=== PATIENT | male | born 1965 | race Caucasian/White ===

== ENCOUNTER 2018-07-22 13:30 | Emergency (ER) | payer OTHER, SELFPAY ==
--- NOTE | 2018-07-22 15:43 | ER ---
Nurse's Notes [facility] Name: Mario Rosales Age: 52 yrs Sex: Male : 1965 Arrival Date: 07/22/2018 Time: 13:32 Bed Waiting Private MD: Parrish Malagon H Diagnosis: Presentation: 07/22 13:34 Presenting complaint: Patient states: Pt had a 16 inch diameter steel jane fall on his sv right forearm. Pt stated that it poked through his arm and was "squirting blood". No blood at this time. Transition of care: patient was not received from another setting of care. Onset of symptoms was July 22, 2018. Care prior to arrival: None. 13:34 Method Of Arrival: Ambulatory sv 13:34 Acuity: KOMAL 3 sv Historical: - Allergies: 13:36 No Known Allergies; sv - Home Meds: 13:36 Lyrica Oral [Active]; Metadate CD oral oral [Active]; sv - PMHx: 13:36 neck nerve pain; ADD/ADHD; sv - PSHx: 13:36 Rt rotator cuff; left knee; sv - Immunization history:: Adult Immunizations up to date. - Social history:: Smoking status: Patient uses tobacco products, smokes one-half pack cigarettes per day. - Ebola Screening: : No symptoms or risks identified at this time. Assessment: 14:04 Reassessment: Pt moved from lobby to exam room for xray, pt refused xray. Placed back hb in waiting room. Vital Signs: 13:39 BP 130 / 79; Pulse 92; Resp 18; Temp 98.7; Pulse Ox 96% ; Weight 76.2 kg; Height 5 ft. sv 4 in. (162.56 cm); Pain 0/10; 13:39 Body Mass Index 28.84 (76.20 kg, 162.56 cm) sv ED Course: 13:32 Patient arrived in ED. sb2 13:32 Parrish Malagon DO is Private Physician. sb2 13:35 Triage completed. sv 13:37 Arm band placed on right wrist. sv 13:41 Patient placed in waiting room, Patient notified of wait time. X-ray ordered. sv Administered Medications: No medications were administered Outcome: 15:43 Patient left the ED. sv Signatures: Joya Melissa RN RN sv Eliane Zaragoza, HARMEET RN Sheyla Hickman sb2 Corrections: (The following items were deleted from the chart) 13:40 13:39 Pulse 92bpm; Resp 18bpm; Pulse Ox 96%; Temp 98.7F; 76.2 kg; Height 5 ft. 4 in.; sv BMI: 28.8; Pain 0/10; sv
== END 2018-07-22 15:43 | disposition left against medical advice (07) ==
LOC: ER 13:30
DX: Z53.21 Procedure and treatment not carried out due to patient leaving prior to being seen by health care provider (principal)
CPT/HCPCS: 99281

== ENCOUNTER 2018-11-15 14:26 | Emergency (ER) | payer SELFPAY ==
[2018-11-15] MEDS ORDERED: ONDANSETRON 4 MG (ODT) TAB ONE (15:52)
[2018-11-15] MEDS ORDERED: MEPERIDINE HCL 50 MG/ML AMP ONE (15:52)
--- NOTE | 2018-11-15 16:30 | ER ---
Nurse's Notes [facility] Name: Mario Rosales Age: 53 yrs Sex: Male : 1965 Arrival Date: 11/15/2018 Time: 14:30 Bed 9 Private MD: Parrish Malagon H Diagnosis: Muscle spasm Presentation: 11/15 14:32 Presenting complaint: Patient states: L posterior shoulder pain after unloading wives ph car on Tuesday, had massage yesterday, pain worse today, reports that pain radiates to L arm. Transition of care: patient was not received from another setting of care. Onset of symptoms was November 15, 2018. Risk Assessment: Do you want to hurt yourself or someone else? Patient reports no desire to harm self or others. Initial Sepsis Screen: Does the patient meet any 2 criteria? No. Patient's initial sepsis screen is negative. Does the patient have a suspected source of infection? No. Patient's initial sepsis screen is negative. Care prior to arrival: Medication(s) given: Harriett Aviles. 14:32 Method Of Arrival: Ambulatory ph 14:32 Acuity: KOMAL 4 ph Historical: - Allergies: 14:36 No Known Allergies; ph - Home Meds: 14:36 Lyrica Oral [Active]; Wellbutrin Oral [Active]; ph - PMHx: 14:36 ADD/ADHD; neck nerve pain; ph - PSHx: 14:36 Rt rotator cuff; left knee; ph - Immunization history:: Adult Immunizations unknown. - Social history:: Smoking status: Patient uses tobacco products, smokes one-half pack cigarettes per day. - Ebola Screening: : No symptoms or risks identified at this time. Screenin:14 Abuse screen: Denies threats or abuse. Denies injuries from another. Nutritional ph screening: No deficits noted. Tuberculosis screening: No symptoms or risk factors identified. Fall Risk None identified. Assessment: 15:13 General: Appears in no apparent distress. uncomfortable, well groomed, Behavior is ph calm, cooperative, appropriate for age. Pain: Complains of pain in left scapular area. Neuro: Level of Consciousness is awake, alert, obeys commands, Oriented to person, place, time, situation. Cardiovascular: Capillary refill < 3 seconds in bilateral fingers Patient's skin is warm and dry. Respiratory: Airway is patent Respiratory effort is even, unlabored, Respiratory pattern is regular, symmetrical. Derm: Skin is intact, is healthy with good turgor, Skin is pink, warm \T\ dry. Musculoskeletal: Circulation, motion, and sensation intact. Range of motion: limited in left shoulder. Vital Signs: 14:35 BP 163 / 90; Pulse 93; Resp 018; Temp 97.9; Pulse Ox 97% on R/A; Weight 74.84 kg; ph Height 5 ft. 4 in. (162.56 cm); Pain 8/10; 14:35 Body Mass Index 28.32 (74.84 kg, 162.56 cm) ph ED Course: 14:30 Patient arrived in ED. sb2 14:30 Parrish Malagon DO is Private Physician. sb2 14:35 Triage completed. ph 14:37 Arm band placed on. ph 15:13 Lorelei Frances RN is Primary Nurse. ph 15:14 Patient has correct armband on for positive identification. Bed in low position. Call ph light in reach. Side rails up X 1. Warm blanket given. 15:21 David Urena PA is PHCP. jr8 15:21 Hilario Arthur MD is Attending Physician. jr8 16:29 Panfilo Mckenzie MD is Referral Physician. jr8 16:39 No provider procedures requiring assistance completed. Patient did not have IV access ss during this emergency room visit. Administered Medications: 15:48 Drug: Demerol 50 mg Route: IM; Site: right deltoid; ss 16:54 Follow up: Response: No adverse reaction; Pain is decreased ss 15:48 Drug: Zofran 4 mg Route: PO; ss 16:54 Follow up: Response: No adverse reaction; Pain is decreased ss Outcome: 16:30 Discharge ordered by . jr8 16:39 Patient left the ED. em 16:39 Discharged to home ambulatory, with family. ss 16:39 Condition: good 16:39 Discharge instructions given to patient, family, Instructed on discharge instructions, follow up and referral plans. medication usage, Demonstrated understanding of instructions, follow-up care, medications. Signatures: Jitendra Boone, BUTTONHOLER BUTTONHOLER em Leticia Farooq RN RN David Urena PA PA jr8 Lorelei Frances RN RN Sheyla Hickman sb2
--- NOTE | 2018-11-15 16:30 | EDPHYS ---
Physician Documentation [facility] Name: Mario Rosales Age: 53 yrs Sex: Male : 1965 Arrival Date: 11/15/2018 Time: 14:30 Bed 9 Private MD: Parrish Malagon H ED Physician Hilario Arthur HPI: 11/15 16:38 This 53 yrs old Male presents to ER via Ambulatory with complaints of jr8 Shoulder Pain. 16:38 The patient or guardian complains of decreased range of motion, pain. left shoulder and jr8 left scapular area. Context: The problem was sustained at home, resulted from picking up object. Onset: The symptoms/episode began/occurred acutely, 2 day(s) ago. Modifying factors: the symptoms are alleviated by nothing. The symptoms are aggravated by movement. Associated signs and symptoms: The patient has no apparent associated signs or symptoms. Severity of symptoms: At their worst the symptoms were moderate, in the emergency department the symptoms are unchanged. The patient has not experienced similar symptoms in the past. The patient has not recently seen a physician. Patient had arms abducted and was trying to knot picker cloth object. Day after had extreme pain to shoulder and scapular region. Had massage with helped but now with worsening of pain today . Historical: - Allergies: 14:36 No Known Allergies; ph - Home Meds: 14:36 Lyrica Oral [Active]; Wellbutrin Oral [Active]; ph - PMHx: 14:36 ADD/ADHD; neck nerve pain; ph - PSHx: 14:36 Rt rotator cuff; left knee; ph - Immunization history:: Adult Immunizations unknown. - Social history:: Smoking status: Patient uses tobacco products, smokes one-half pack cigarettes per day. - Ebola Screening: : No symptoms or risks identified at this time. ROS: 16:38 Eyes: Negative for injury, pain, redness, and discharge, ENT: Negative for injury, jr8 pain, and discharge, Neck: Negative for injury, pain, and swelling, Cardiovascular: Negative for chest pain, palpitations, and edema, Respiratory: Negative for shortness of breath, cough, wheezing, and pleuritic chest pain, Abdomen/GI: Negative for abdominal pain, nausea, vomiting, diarrhea, and constipation, Back: Negative for injury and pain, Skin: Negative for injury, rash, and discoloration, Neuro: Negative for headache, weakness, numbness, tingling, and seizure. 16:38 MS/extremity: Positive for decreased range of motion, pain, of the left scapular area and left shoulder. Exam: 16:38 Eyes: Pupils equal round and reactive to light, extra-ocular motions intact. Lids and jr8 lashes normal. Conjunctiva and sclera are non-icteric and not injected. Cornea within normal limits. Periorbital areas with no swelling, redness, or edema. ENT: Nares patent. No nasal discharge, no septal abnormalities noted. Tympanic membranes are normal and external auditory canals are clear. Oropharynx with no redness, swelling, or masses, exudates, or evidence of obstruction, uvula midline. Mucous membranes moist. Neck: Trachea midline, no thyromegaly or masses palpated, and no cervical lymphadenopathy. Supple, full range of motion without nuchal rigidity, or vertebral point tenderness. No Meningismus. Chest/axilla: Normal chest wall appearance and motion. Nontender with no deformity. No lesions are appreciated. Cardiovascular: Regular rate and rhythm with a normal S1 and S2. No gallops, murmurs, or rubs. Normal PMI, no JVD. No pulse deficits. Respiratory: Lungs have equal breath sounds bilaterally, clear to auscultation and percussion. No rales, rhonchi or wheezes noted. No increased work of breathing, no retractions or nasal flaring. Abdomen/GI: Soft, non-tender, with normal bowel sounds. No distension or tympany. No guarding or rebound. No evidence of tenderness throughout. Back: No spinal tenderness. No costovertebral tenderness. Full range of motion. Skin: Warm, dry with normal turgor. Normal color with no rashes, no lesions, and no evidence of cellulitis. Neuro: Awake and alert, GCS 15, oriented to person, place, time, and situation. Cranial nerves II-XII grossly intact. Motor strength 5/5 in all extremities. Sensory grossly intact. Cerebellar exam normal. Normal gait. 16:38 Musculoskeletal/extremity: Extremities: grossly normal except: noted in the left shoulder: ROM: intact in all extremities, full active range of motion, full passive range of motion, limited active range of motion due to pain, limited passive range of motion due to pain, Circulation is intact in all extremities. Sensation intact. tenderness to left trapezius and scapular region. Vital Signs: 14:35 BP 163 / 90; Pulse 93; Resp 018; Temp 97.9; Pulse Ox 97% on R/A; Weight 74.84 kg; ph Height 5 ft. 4 in. (162.56 cm); Pain 8/10; 14:35 Body Mass Index 28.32 (74.84 kg, 162.56 cm) ph MDM: 15:21 Patient medically screened. jr8 16:29 Data reviewed: vital signs, nurses notes, and as a result, I will discharge patient. jr8 Data interpreted: Pulse oximetry: on room air is 97 %. Interpretation: normal. Counseling: I had a detailed discussion with the patient and/or guardian regarding: the historical points, exam findings, and any diagnostic results supporting the discharge/admit diagnosis, the need for outpatient follow up, a orthopedic surgeon, to return to the emergency department if symptoms worsen or persist or if there are any questions or concerns that arise at home. Response to treatment: the patient's symptoms have markedly improved after treatment. Administered Medications: 15:48 Drug: Demerol 50 mg Route: IM; Site: right deltoid; ss 16:54 Follow up: Response: No adverse reaction; Pain is decreased ss 15:48 Drug: Zofran 4 mg Route: PO; ss 16:54 Follow up: Response: No adverse reaction; Pain is decreased ss Disposition: 11/16 07:37 Co-signature as Attending Physician, Hilario Arthur MD I agree with the assessment and kdr plan of care. Disposition: 11/15/18 16:30 Discharged to Home. Impression: Muscle spasm. - Condition is Stable. - Discharge Instructions: Muscle Cramps and Spasms, Muscle Strain. - Prescriptions for Ibuprofen 800 mg Oral Tablet - take 1 tablet by ORAL route every 12 hours As needed take with food; 20 tablet. Cyclobenzaprine 10 mg Oral Tablet - take 1 tablet by ORAL route every 8 hours As needed; 30 tablet. Tramadol 50 mg Oral Tablet - take 1 tablet by ORAL route every 8 hours as needed; 12 tablet. - Medication Reconciliation Form, Thank You Letter, Antibiotic Education, Prescription Opioid Use form. - Follow up: Panfilo Mckenzie MD; When: 5 - 6 days; Reason: Recheck today's complaints, Continuance of care, Re-evaluation by your physician. - Problem is new. - Symptoms have improved. Signatures: Hilario Arthur MD MD [facility] Jitendra Boone, COMMERCIAL DRIVER COMMERCIAL DRIVER em Leticia Farooq RN RN David Urena, TAMMY PA jr8 Lorelei Frances, HARMEET RN ph Corrections: (The following items were deleted from the chart) 11/15 16:39 16:30 11/15/2018 16:30 Discharged to Home. Impression: Muscle spasm. Condition is em Stable. Forms are Medication Reconciliation Form, Thank You Letter, Antibiotic Education, Prescription Opioid Use. Follow up: Panfilo Mckenzie; When: 5 - 6 days; Reason: Recheck today's complaints, Continuance of care, Re-evaluation by your physician. Problem is new. Symptoms have improved. jr8
== END 2018-11-15 16:39 | disposition home or self-care (01) ==
LOC: ER 14:26
DX: M62.838 Other muscle spasm (principal); F90.9 Attention-deficit hyperactivity disorder, unspecified type; F17.210 Nicotine dependence, cigarettes, uncomplicated
CPT/HCPCS: 96372; 99283; J2175

== ENCOUNTER 2018-11-16 19:08 | Emergency (ER) | payer BC, SELFPAY ==
[2018-11-16] MEDS ORDERED: DEXAMETHASONE 10 MG/ML VIAL ONE (20:27)
[2018-11-16] MEDS ORDERED: KETOROLAC 30 MG/ML INJ ONE (20:27)
--- NOTE | 2018-11-16 21:11 | RAD REPORT ---
EXAM DESCRIPTION: CT - C Spine Wo Con - 11/16/2018 8:44 pm CLINICAL HISTORY: Left arm radiculopathy COMPARISON: 2013 TECHNIQUE: Computed axial tomography of the cervical spine were obtained with sagittal and coronal r econstruction images generated and reviewed. All CT scans are performed using dose optimization technique as appropriate and may include automated exposure control or mA/KV adjustment according to patient size. FINDINGS: A cervical fracture is not seen. Loss of the normal lordosis of the cervical spine is pres ent. Disc bulge, osteophytes and facet hypertrophy C2-3 resulting in moderate narrowing left neural forami na Disc bulge, osteophytes and facet hypertrophy C5-6 result in moderate narrowing right neural foramina IMPRESSION: A cervical fracture is not seen. Loss of the normal lordosis of the cervical spine may be secondary to muscle spasm Spondylosis C2-3 resulting in moderate left foraminal stenosis Spondylosis C5-6 resulting in moderate right foraminal stenosis If the patient continues have symptoms to suggest spinal cord/spinal canal pathology then MRI would b e recommended.
--- NOTE | 2018-11-16 21:11 | RAD REPORT ---
EXAM DESCRIPTION: RAD - Shoulder Left 2 View - 11/16/2018 8:50 pm CLINICAL HISTORY: Left shoulder pain FINDINGS: No fracture or dislocation is seen. Mild osteoarthritis left acromioclavicular joint
--- NOTE | 2018-11-16 21:25 | EDPHYS ---
Physician Documentation [facility] Name: Mario Rosales Age: 53 yrs Sex: Male : 1965 Arrival Date: 11/16/2018 Time: 19:09 Bed 17 Private MD: Parrish Malagon H ED Physician Krish Randolph HPI: 11/16 20:06 This 53 yrs old Male presents to ER via Ambulatory with complaints of grace Shoulder Pain. 20:06 The patient or guardian complains of decreased range of motion. left shoulder. Context: grace The problem was sustained at an unknown site. Onset: The symptoms/episode began/occurred 3 day(s) ago. Modifying factors: the symptoms are alleviated by nothing. remaining still, The symptoms are aggravated by movement. Associated signs and symptoms: The patient has no apparent associated signs or symptoms. Severity of symptoms: At their worst the symptoms were mild, moderate, in the emergency department the symptoms are unchanged. Treatment prior to arrival includes: prescription medications, codeine, muscle relaxant. The patient has not experienced similar symptoms in the past. Historical: - Allergies: 19:33 No Known Allergies; aj1 - Home Meds: 19:33 Lyrica Oral [Active]; Wellbutrin Oral [Active]; aj1 - PMHx: 19:33 ADD/ADHD; neck nerve pain; aj1 - PSHx: 19:33 shoulder surgery; Knee surgery; aj1 - Immunization history:: Flu vaccine is not up to date. - Social history:: Smoking status: Patient uses tobacco products, smokes one-half pack cigarettes per day. - Ebola Screening: : Patient denies travel to an Ebola-affected area in the 21 days before illness onset. - Family history:: not pertinent. ROS: 20:06 Constitutional: Negative for fever, chills, and weight loss, Eyes: Negative for injury, grace pain, redness, and discharge, ENT: Negative for injury, pain, and discharge, Neck: Negative for injury, pain, and swelling, Cardiovascular: Negative for chest pain, palpitations, and edema, Respiratory: Negative for shortness of breath, cough, wheezing, and pleuritic chest pain, Abdomen/GI: Negative for abdominal pain, nausea, vomiting, diarrhea, and constipation, Back: Negative for injury and pain, : Negative for injury, bleeding, discharge, and swelling, Skin: Negative for injury, rash, and discoloration, Neuro: Negative for headache, weakness, numbness, tingling, and seizure, Psych: Negative for depression, anxiety, suicide ideation, homicidal ideation, and hallucinations, Allergy/Immunology: Negative for hives, rash, and allergies, Endocrine: Negative for neck swelling, polydipsia, polyuria, polyphagia, and marked weight changes. 20:06 MS/extremity: Positive for tenderness, of the anterior aspect of left shoulder and posterior aspect of left shoulder. Exam: 20:06 Constitutional: This is a well developed, well nourished patient who is awake, alert, grace and in no acute distress. Head/Face: Normocephalic, atraumatic. Eyes: Pupils equal round and reactive to light, extra-ocular motions intact. Lids and lashes normal. Conjunctiva and sclera are non-icteric and not injected. Cornea within normal limits. Periorbital areas with no swelling, redness, or edema. ENT: Nares patent. No nasal discharge, no septal abnormalities noted. Tympanic membranes are normal and external auditory canals are clear. Oropharynx with no redness, swelling, or masses, exudates, or evidence of obstruction, uvula midline. Mucous membranes moist. Neck: Trachea midline, no thyromegaly or masses palpated, and no cervical lymphadenopathy. Supple, full range of motion without nuchal rigidity, or vertebral point tenderness. No Meningismus. Chest/axilla: Normal chest wall appearance and motion. Nontender with no deformity. No lesions are appreciated. Cardiovascular: Regular rate and rhythm with a normal S1 and S2. No gallops, murmurs, or rubs. Normal PMI, no JVD. No pulse deficits. Respiratory: Lungs have equal breath sounds bilaterally, clear to auscultation and percussion. No rales, rhonchi or wheezes noted. No increased work of breathing, no retractions or nasal flaring. Abdomen/GI: Soft, non-tender, with normal bowel sounds. No distension or tympany. No guarding or rebound. No evidence of tenderness throughout. Back: No spinal tenderness. No costovertebral tenderness. Full range of motion. Male : Normal genitalia with no discharge or lesions. Skin: Warm, dry with normal turgor. Normal color with no rashes, no lesions, and no evidence of cellulitis. Neuro: Awake and alert, GCS 15, oriented to person, place, time, and situation. Cranial nerves II-XII grossly intact. Motor strength 5/5 in all extremities. Sensory grossly intact. Cerebellar exam normal. Normal gait. Psych: Awake, alert, with orientation to person, place and time. Behavior, mood, and affect are within normal limits. 20:06 Musculoskeletal/extremity: ROM: full passive range of motion, limited active range of motion, in the anterior aspect of left shoulder and posterior aspect of left shoulder. Vital Signs: 19:33 BP 126 / 97; Pulse 98; Resp 20; Temp 97.6; Pulse Ox 98% on R/A; Weight 74.84 kg (R); aj1 Height 5 ft. 4 in. (162.56 cm) (R); Pain 10/10; 21:01 BP 140 / 100; Pulse 81; Resp 18; Pulse Ox 99% on R/A; Pain 6/10; ca1 21:49 BP 160 / 90; Pulse 99; Resp 19; Pulse Ox 99% on R/A; Pain 6/10; ca1 19:33 Body Mass Index 28.32 (74.84 kg, 162.56 cm) aj1 MDM: 19:17 Patient medically screened. [facility] 20:06 Data reviewed: vital signs, nurses notes, radiologic studies, CT scan, plain films. [facility] 11/16 20:06 Order name: CT C Spine; Complete Time: 21:23 [facility] 11/16 20:06 Order name: Shoulder Left (2 View) XRAY; Complete Time: 21:23 [facility] 11/16 20:06 Order name: Sling; Complete Time: 20:52 [facility] Administered Medications: 20:18 Drug: TORadol 60 mg Route: IM; Site: left deltoid; ca1 20:52 Follow up: Response: No adverse reaction ca1 20:20 Drug: Decadron 10 mg Route: IM; Site: right deltoid; ca1 20:53 Follow up: Response: No adverse reaction ca1 Disposition: 11/16/18 21:24 Discharged to Home. Impression: Radiculopathy, cervical region, Pain in left shoulder, Spondylolysis, cervical region. - Condition is Stable. - Discharge Instructions: Joint Pain, Cervical Radiculopathy, Musculoskeletal Pain, Shoulder Pain, Shoulder Pain, [id number]. - Prescriptions for Ibuprofen 600 mg Oral Tablet - take 1 tablet by ORAL route every 8 hours As needed take with food; 21 tablet. Tylenol- Codeine #3 300-30 mg Oral Tablet - take 2 tablet by ORAL route every 6 hours As needed; 30 tablet. Medrol (Chris) 4 mg Oral Tablets, Dose Pack - take 1 tablet by ORAL route as directed - follow package instructions; 1 packet. Valium 2 mg Oral Tablet - take 1 tablet by ORAL route every 8 hours As needed; 20 tablet. - Medication Reconciliation Form, Thank You Letter, Antibiotic Education, Prescription Opioid Use form. - [facility]; When: 2 - 3 days; Reason: Recheck today's complaints, Continuance of care, Re-evaluation by your physician. Follow up: Simone Pino; When: 2 - 3 days; Reason: Recheck today's complaints, Re-evaluation by your physician. - Problem is new. - Symptoms have improved. Signatures: Dispatcher [employer] EDRaven Brown RN RN aj1 Krish Randolph MD MD cha Acob, Cheryl, RN RN ca1 Corrections: (The following items were deleted from the chart) 21:53 21:24 11/16/2018 21:24 Discharged to Home. Impression: Radiculopathy, cervical region; ca1 Pain in left shoulder; Spondylolysis, cervical region. Condition is Stable. Discharge Instructions: Joint Pain, Cervical Radiculopathy, Musculoskeletal Pain, Shoulder Pain, Shoulder Pain, [id number]. Prescriptions for Ibuprofen 600 mg Oral Tablet - take 1 tablet by ORAL route every 8 hours As needed take with food; 21 tablet, Tylenol-Codeine #3 300-30 mg Oral Tablet - take 2 tablet by ORAL route every 6 hours As needed; 30 tablet, Medrol (Chris) 4 mg Oral Tablets, Dose Pack - take 1 tablet by ORAL route as directed - follow package instructions; 1 packet, Valium 2 mg Oral Tablet - take 1 tablet by ORAL route every 8 hours As needed; 20 tablet. and Forms are Medication Reconciliation Form, Thank You Letter, Antibiotic Education, Prescription Opioid Use. [facility]; When: 2 - 3 days; Reason: Recheck today's complaints, Continuance of care, Re-evaluation by your physician. Follow up: Simone Pino; When: 2 - 3 days; Reason: Recheck today's complaints, Re-evaluation by your physician. Problem is new. Symptoms have improved. grace
--- NOTE | 2018-11-16 21:25 | ER ---
Nurse's Notes [facility] Name: Mario Rosales Age: 53 yrs Sex: Male : 1965 Arrival Date: 11/16/2018 Time: 19:09 Bed 17 Private MD: Parrish Malagon H Diagnosis: Radiculopathy, cervical region;Pain in left shoulder;Spondylolysis, cervical region Presentation: 11/16 19:31 Presenting complaint: Patient states: Left shoulder pain for the past 5 days. He was aj1 seen here yesterday for the same complaint with a Rx for Tramadol and Flexeril, patient states these medications are not helping him and at and his pain is too bad to tolerate. Transition of care: patient was not received from another setting of care. Onset of symptoms was November 11, 2015. Risk Assessment: Do you want to hurt yourself or someone else? Patient reports no desire to harm self or others. Initial Sepsis Screen: Does the patient meet any 2 criteria? No. Patient's initial sepsis screen is negative. Does the patient have a suspected source of infection? No. Patient's initial sepsis screen is negative. Care prior to arrival: None. 19:31 Method Of Arrival: Ambulatory aj1 19:31 Acuity: KOMAL 4 aj1 Triage Assessment: 19:33 General: Appears uncomfortable, Behavior is cooperative, restless. Pain: Complains of aj1 pain in anterior aspect of left shoulder and posterior aspect of left shoulder Pain currently is 10 out of 10 on a pain scale. Neuro: Level of Consciousness is awake, alert, obeys commands. Cardiovascular: Patient's skin is warm and dry. Respiratory: Airway is patent Respiratory effort is even, unlabored, Respiratory pattern is regular, symmetrical. Historical: - Allergies: 19:33 No Known Allergies; aj1 - Home Meds: 19:33 Lyrica Oral [Active]; Wellbutrin Oral [Active]; aj1 - PMHx: 19:33 ADD/ADHD; neck nerve pain; aj1 - PSHx: 19:33 shoulder surgery; Knee surgery; aj1 - Immunization history:: Flu vaccine is not up to date. - Social history:: Smoking status: Patient uses tobacco products, smokes one-half pack cigarettes per day. - Ebola Screening: : Patient denies travel to an Ebola-affected area in the 21 days before illness onset. - Family history:: not pertinent. Screenin:40 Abuse screen: Denies threats or abuse. Denies injuries from another. Nutritional ca1 screening: No deficits noted. Tuberculosis screening: No symptoms or risk factors identified. Fall Risk None identified. Assessment: 19:40 General: Appears in no apparent distress. uncomfortable, Behavior is calm, cooperative, ca1 appropriate for age. Pain: Complains of pain in back of neck and left shoulder Pain currently is 10 out of 10 on a pain scale. Quality of pain is described as burning, Pain began 5 days ago. Is intermittent. Neuro: Level of Consciousness is awake, alert, obeys commands, Oriented to person, place, time, situation. Cardiovascular: Heart tones S1 S2 present Capillary refill < 3 seconds Patient's skin is warm and dry. Respiratory: Airway is patent Trachea midline Respiratory effort is even, unlabored, Respiratory pattern is regular, symmetrical, Breath sounds are clear bilaterally. GI: Abdomen is round non-distended. : No signs and/or symptoms were reported regarding the genitourinary system. EENT: No signs and/or symptoms were reported regarding the EENT system. Derm: Skin is intact, is healthy with good turgor, Skin is pink, warm \T\ dry. Musculoskeletal: Circulation, motion, and sensation intact. 21:01 Reassessment: Patient appears in no apparent distress at this time. Patient and/or ca1 family updated on plan of care and expected duration. Pain level reassessed. Patient is alert, oriented x 3, equal unlabored respirations, skin warm/dry/pink. Patient states feeling better. 21:49 Reassessment: Patient appears in no apparent distress at this time. Patient and/or ca1 family updated on plan of care and expected duration. Pain level reassessed. Patient is alert, oriented x 3, equal unlabored respirations, skin warm/dry/pink. Vital Signs: 19:33 BP 126 / 97; Pulse 98; Resp 20; Temp 97.6; Pulse Ox 98% on R/A; Weight 74.84 kg (R); aj1 Height 5 ft. 4 in. (162.56 cm) (R); Pain 10/10; 21:01 BP 140 / 100; Pulse 81; Resp 18; Pulse Ox 99% on R/A; Pain 6/10; ca1 21:49 BP 160 / 90; Pulse 99; Resp 19; Pulse Ox 99% on R/A; Pain 6/10; ca1 19:33 Body Mass Index 28.32 (74.84 kg, 162.56 cm) aj1 ED Course: 19:09 Patient arrived in ED. es 19:11 Parrish Malagon DO is Private Physician. es 19:17 Krish Randolph MD is Attending Physician. grace 19:24 Alta Santos RN is Primary Nurse. aa1 19:32 Triage completed. aj1 19:33 Arm band placed on Patient placed in an exam room. aj1 19:40 Patient has correct armband on for positive identification. Bed in low position. Call ca1 light in reach. Side rails up X 1. 20:[address] via wheelchair. jg6 20:43 CT completed. Patient tolerated procedure well. Patient moved to radiology. em2 20:44 CT C Spine In Process Unspecified. EDMS 20:50 Shoulder Left (2 View) XRAY In Process Unspecified. EDMS 21:24 Parrish Malagon DO is Referral Physician. grace 21:24 Simone Pino MD is Referral Physician. grace 21:31 Sling applied to left arm. ag4 21:49 No provider procedures requiring assistance completed. Patient did not have IV access ca1 during this emergency room visit. Administered Medications: 20:18 Drug: TORadol 60 mg Route: IM; Site: left deltoid; ca1 20:52 Follow up: Response: No adverse reaction ca1 20:20 Drug: Decadron 10 mg Route: IM; Site: right deltoid; ca1 20:53 Follow up: Response: No adverse reaction ca1 Outcome: 21:24 Discharge ordered by . grace 21:49 Discharged to home ambulatory. ca1 21:49 Condition: stable 21:49 Discharge instructions given to patient, Instructed on discharge instructions, follow up and referral plans. medication usage, Demonstrated understanding of instructions, follow-up care, medications, Prescriptions given X 4. 21:53 Patient left the ED. ca1 Signatures: Dispatcher [employer] EDMS Raven Grover RN RN aj1 Alta Santos, HARMEET RN aa1 Krish Randolph MD MD cha Salyer, Edna es Montes, Enrique em2 Minal Hamm jg6 Aurelio Reece ag4 Padmini, Azeb, RN RN ca1
== END 2018-11-16 21:53 | disposition home or self-care (01) ==
LOC: ER 19:08
DX: M47.892 Other spondylosis, cervical region (principal); M54.12 Radiculopathy, cervical region; F17.210 Nicotine dependence, cigarettes, uncomplicated; F90.9 Attention-deficit hyperactivity disorder, unspecified type
CPT/HCPCS: 72125; 96372; 99284; J1100

== ENCOUNTER 2018-11-28 14:11 | Emergency (ER) | payer BC ==
[2018-11-28] MEDS ORDERED: LIDOCAINE 1% MPF 5 ML VIAL ONE ×2 (15:15→15:35)
[2018-11-28] MEDS ORDERED: TRIAMCINOLONE ACETON 40 MG/ML VIAL ONE ×2 (15:15→15:35)
--- NOTE | 2018-11-28 15:21 | EDPHYS ---
Physician Documentation [facility] Name: Mario Rosales Age: 53 yrs Sex: Male : 1965 Arrival Date: 11/28/2018 Time: 14:14 Bed 7 Private MD: Parrish Malagon H ED Physician Hilario Arthur HPI: 11/28 15:18 This 53 yrs old Male presents to ER via Ambulatory with complaints of snw Shoulder Pain. 15:18 The patient or guardian complains of decreased range of motion, pain, spasm. left snw trapezius. Context: The problem was sustained at an unknown site, resulted from an unknown reason, The patient experiences decreased range of motion, when attempts to raise arm. Onset: The symptoms/episode began/occurred 1 month(s) ago, and became worse and became persistent. Associated signs and symptoms: Pertinent positives: burning pain to posterior left arm. Severity of symptoms: At their worst the symptoms were moderate. The patient has experienced similar episodes in the past. The patient has been recently seen by a physician: The patient has been recently seen at the [facility] Emergency Department, last week, for similar complaints was given a prescription for pain medications. Historical: - Allergies: 14:50 No Known Allergies; sv - Home Meds: 14:21 Lyrica Oral [Active]; Wellbutrin Oral [Active]; ph - PMHx: 14:21 ADD/ADHD; neck nerve pain; ph - PSHx: 14:21 shoulder surgery; Knee surgery; ph - Immunization history:: Adult Immunizations up to date. - Ebola Screening: : No symptoms or risks identified at this time. - Social history:: Smoking status: Patient uses tobacco products, smokes one-half pack cigarettes per day. ROS: 15:17 Constitutional: Negative for fever, chills, and weight loss, Eyes: Negative for injury, snw pain, redness, and discharge, ENT: Negative for injury, pain, and discharge, Neck: Negative for injury, pain, and swelling, Cardiovascular: Negative for chest pain, palpitations, and edema, Respiratory: Negative for shortness of breath, cough, wheezing, and pleuritic chest pain, Abdomen/GI: Negative for abdominal pain, nausea, vomiting, diarrhea, and constipation, Back: Negative for injury and pain, : Negative for injury, bleeding, discharge, and swelling, Skin: Negative for injury, rash, and discoloration, Neuro: Negative for headache, weakness, numbness, tingling, and seizure. 15:17 MS/extremity: Positive for decreased range of motion, pain, of the left trapezius. Exam: 15:16 Constitutional: This is a well developed, well nourished patient who is awake, alert, snw and in no acute distress. Head/Face: Normocephalic, atraumatic. Eyes: Pupils equal round and reactive to light, extra-ocular motions intact. Lids and lashes normal. Conjunctiva and sclera are non-icteric and not injected. Cornea within normal limits. Periorbital areas with no swelling, redness, or edema. ENT: Nares patent. No nasal discharge, no septal abnormalities noted. Tympanic membranes are normal and external auditory canals are clear. Oropharynx with no redness, swelling, or masses, exudates, or evidence of obstruction, uvula midline. Mucous membranes moist. Neck: Trachea midline, no thyromegaly or masses palpated, and no cervical lymphadenopathy. Supple, full range of motion without nuchal rigidity, or vertebral point tenderness. No Meningismus. Chest/axilla: Normal chest wall appearance and motion. Nontender with no deformity. No lesions are appreciated. Cardiovascular: Regular rate and rhythm with a normal S1 and S2. No gallops, murmurs, or rubs. Normal PMI, no JVD. No pulse deficits. Respiratory: Lungs have equal breath sounds bilaterally, clear to auscultation and percussion. No rales, rhonchi or wheezes noted. No increased work of breathing, no retractions or nasal flaring. Abdomen/GI: Soft, non-tender, with normal bowel sounds. No distension or tympany. No guarding or rebound. No evidence of tenderness throughout. Back: No spinal tenderness. No costovertebral tenderness. Full range of motion. Skin: Warm, dry with normal turgor. Normal color with no rashes, no lesions, and no evidence of cellulitis. Neuro: Awake and alert, GCS 15, oriented to person, place, time, and situation. Cranial nerves II-XII grossly intact. Motor strength 5/5 in all extremities. Sensory grossly intact. Cerebellar exam normal. Normal gait. Psych: Awake, alert, with orientation to person, place and time. Behavior, mood, and affect are within normal limits. 15:16 Musculoskeletal/extremity: Extremities: grossly normal except: noted in the left trapezius: decreased ROM, pain, ROM: limited passive range of motion, limited active range of motion due to pain, limited passive range of motion due to pain, Circulation is intact in all extremities. Sensation intact. burning type pain Vital Signs: 14:20 BP 148 / 91; Pulse 107; Resp 18; Temp 98.6; Pulse Ox 97% on R/A; Weight 77.11 kg; ph Height 5 ft. 4 in. (162.56 cm); 14:20 Body Mass Index 29.18 (77.11 kg, 162.56 cm) ph Procedures: 15:15 Performed trigger point injection - kenalog 60mg/Lidocaine 5ml deep IM to left snw trapezius. MDM: 14:30 Patient medically screened. snw 15:17 Data reviewed: vital signs, nurses notes. Data interpreted: Pulse oximetry: on room air snw is 97 %. Interpretation: normal. Counseling: I had a detailed discussion with the patient and/or guardian regarding: the historical points, exam findings, and any diagnostic results supporting the discharge/admit diagnosis, the presence of at least one elevated blood pressure reading (>120/80) during this emergency department visit, the need for outpatient follow up, to return to the emergency department if symptoms worsen or persist or if there are any questions or concerns that arise at home. Special discussion: Based on the history and exam findings, there is no indication for further emergent testing or inpatient evaluation. I discussed with the patient/guardian the need to see the orthopedic surgeon for further evaluation of the symptoms. ED course: Pt saw a Chiropractor yesterday with 30-45 min relief. Administered Medications: 15:20 Drug: Lidocaine (1 %) 5 mg {Note: given by Shayy SUPPORT SERVICES MANAGER.} Route: Infiltration; sv 15:20 Drug: Kenalog 60 mg {Note: given by Shayy SUPPORT SERVICES MANAGER.} Route: IM; Site: affected area; sv 15:28 Drug: Valium 10 mg Route: PO; sv 15:37 Follow up: Response: No adverse reaction sv Disposition: 16:04 Co-signature as Attending Physician, Hilario Arthur MD I agree with the assessment and kdr plan of care. Disposition: 11/28/18 15:20 Discharged to Home. Impression: Muscle spasm of back, Pain in left shoulder. - Condition is Stable. - Discharge Instructions: Hypertension, Muscle Cramps and Spasms, Shoulder Pain, Muscle Cramps and Spasms, [id number], Cryotherapy, Heat Therapy. - Prescriptions for LIDOCAINE PATCH 5% - Apply to affected area 1 application by TOPICAL route as directed May wear patch x 12 hours in 24 hour period, remove after 12 hours.; 10 unit. Diclofenac Sodium 75 mg Oral Tablet Sustained Release - take 1 tablet by ORAL route 2 times per day; 30 tablet. - Medication Reconciliation Form, Thank You Letter, Antibiotic Education, Prescription Opioid Use form. - Follow up: Parrish Malagon DO; When: 2 - 3 days; Reason: Recheck today's complaints, Continuance of care, Re-evaluation by your physician. Follow up: Emergency Department; When: As needed; Reason: Worsening of condition. Signatures: Joya Melissa RN RN Hilario Arthur MD MD [facility] Shayy Snow, COLOR DIPPER-C COLOR DIPPER-Csnw Lorelei Frances RN RN ph Corrections: (The following items were deleted from the chart) 15:34 14:56 Sling ordered. snw sv 15:38 15:20 11/28/2018 15:20 Discharged to Home. Impression: Muscle spasm of back; Pain in sv left shoulder. Condition is Stable. Forms are Medication Reconciliation Form, Thank You Letter, Antibiotic Education, Prescription Opioid Use. Follow up: Parrish Malagon; When: 2 - 3 days; Reason: Recheck today's complaints, Continuance of care, Re-evaluation by your physician. Follow up: Emergency Department; When: As needed; Reason: Worsening of condition. snw
--- NOTE | 2018-11-28 15:21 | ER ---
Nurse's Notes [facility] Name: Mario Rosales Age: 53 yrs Sex: Male : 1965 Arrival Date: 11/28/2018 Time: 14:14 Bed 7 Private MD: Parrish Malagon H Diagnosis: Muscle spasm of back;Pain in left shoulder Presentation: 11/28 14:17 Presenting complaint: Patient states: L shoulder pain that radiates up L side of neck ph and down to L hand, seen recently in ED for same complaint, pt states, " My arm is just killing me and with it being the holidays I can't get in anywhere else.". Transition of care: patient was not received from another setting of care. Onset of symptoms was November 28, 2018. Risk Assessment: Do you want to hurt yourself or someone else? Patient reports no desire to harm self or others. Initial Sepsis Screen: Does the patient meet any 2 criteria? No. Patient's initial sepsis screen is negative. Does the patient have a suspected source of infection? No. Patient's initial sepsis screen is negative. Care prior to arrival: Medication(s) given: Motrin, 800 mg, and Lyrica at approx 1200 today. 14:17 Method Of Arrival: Ambulatory ph 14:17 Acuity: KOMAL 4 ph Historical: - Allergies: 14:50 No Known Allergies; sv - Home Meds: 14:21 Lyrica Oral [Active]; Wellbutrin Oral [Active]; ph - PMHx: 14:21 ADD/ADHD; neck nerve pain; ph - PSHx: 14:21 shoulder surgery; Knee surgery; ph - Immunization history:: Adult Immunizations up to date. - Ebola Screening: : No symptoms or risks identified at this time. - Social history:: Smoking status: Patient uses tobacco products, smokes one-half pack cigarettes per day. Screenin:50 Abuse screen: Denies threats or abuse. Denies injuries from another. Nutritional sv screening: No deficits noted. Tuberculosis screening: No symptoms or risk factors identified. Fall Risk None identified. Assessment: 15:00 General: Appears in no apparent distress. uncomfortable, Behavior is calm, cooperative, sv appropriate for age. Pain: Complains of pain in left trapezius Pain currently is 8 out of 10 on a pain scale. Neuro: Level of Consciousness is awake, alert, obeys commands, Oriented to person, place, time, situation, Moves all extremities. Gait is steady. Respiratory: Respiratory effort is even, unlabored, Respiratory pattern is regular, symmetrical. Derm: Skin is pink, warm \\T\\ dry. 15:38 Reassessment: Patient appears in no apparent distress at this time. Patient and/or sv family updated on plan of care and expected duration. Pain level reassessed. Patient is alert, oriented x 3, equal unlabored respirations, skin warm/dry/pink. Patient states feeling better. Patient states symptoms have improved. Vital Signs: 14:20 BP 148 / 91; Pulse 107; Resp 18; Temp 98.6; Pulse Ox 97% on R/A; Weight 77.11 kg; ph Height 5 ft. 4 in. (162.56 cm); 14:20 Body Mass Index 29.18 (77.11 kg, 162.56 cm) ph ED Course: 14:14 Patient arrived in ED. sb2 14:15 Parrish Malagon DO is Private Physician. sb2 14:20 Triage completed. ph 14:26 Shayy Snow [facility]-C [facility]. snw 14:27 Hilario Arthur MD is Attending Physician. snw 14:30 Joya Melissa, HARMEET is Primary Nurse. sv 14:50 Arm band placed on. sv 14:50 Patient has correct armband on for positive identification. Bed in low position. Door sv closed. Head of bed elevated. 15:19 Parrish Malagon DO is Referral Physician. snw 15:38 No provider procedures requiring assistance completed. Patient did not have IV access sv during this emergency room visit. Administered Medications: 15:20 Drug: Lidocaine (1 %) 5 mg {Note: given by Shayy WOODARD.} Route: Infiltration; sv 15:20 Drug: Kenalog 60 mg {Note: given by Shayy WOODARD.} Route: IM; Site: affected area; sv 15:28 Drug: Valium 10 mg Route: PO; sv 15:37 Follow up: Response: No adverse reaction sv Outcome: 15:20 Discharge ordered by . snw 15:38 Discharged to home ambulatory, with family. sv 15:38 Condition: stable 15:38 Condition: improved 15:38 Discharge instructions given to patient, Instructed on discharge instructions, follow up and referral plans. medication usage, Demonstrated understanding of instructions, follow-up care, medications, Prescriptions given X 2. 15:38 Patient left the ED. sv Signatures: Joya Melissa, RN RN Shayy Cortez, OXYACETYLENE CUTTER-C OXYACETYLENE CUTTER-Csnw Lorelei Frances RN RN Sheyla Hickman sb2
[2018-11-28] MEDS ORDERED: DIAZEPAM 5 MG TABLET ONE (15:35)
== END 2018-11-28 15:38 | disposition home or self-care (01) ==
LOC: ER 14:11
PROC: 3E0233Z Introduction of Anti-inflammatory into Muscle, Percutaneous Approach (ICD-10-PCS; principal; 2018-11-28)
PROC: 3E023BZ Introduction of Anesthetic Agent into Muscle, Percutaneous Approach (ICD-10-PCS; 2018-11-28)
DX: M62.830 Muscle spasm of back (principal); M25.512 Pain in left shoulder; F90.9 Attention-deficit hyperactivity disorder, unspecified type; F17.210 Nicotine dependence, cigarettes, uncomplicated
CPT/HCPCS: 96372; 99283; J3301

== ENCOUNTER 2019-10-19 15:31 | Emergency (ER) | payer BC ==
[2019-10-19] MEDS ORDERED: LIDOCAINE 1% W/EPI 1:100,000 MDV 50 ML VIAL ONE (17:07)
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
[2019-10-19 18:18] VITALS: BP 145/91; TEMP 97.9; O2SAT 97
== END 2019-10-19 17:52 | disposition home or self-care (01) ==
LOC: ER 15:31
DX: S01.511A Laceration without foreign body of lip, initial encounter (principal); V59.49XA Driver of pick-up truck or van injured in collision with other motor vehicles in traffic accident, initial encounter
CPT/HCPCS: 70450; 70486; 76377; 99284

== ENCOUNTER 2020-10-04 12:15 | Emergency (ER) | payer BC ==
--- OUTSIDE RECORDS SUMMARY | 2020-10-04 12:17 | XMS REPORT | Continuity of Care Document ---
:1965 Author Organization [facility] t Address [address] [place] [address] Dr. Hopkins [address] [place] [id number] Care Team Providers Name Role Phone Unavailable Unavailable Unavailable Problems This patient has no known problems. Allergies, Adverse Reactions, Alerts This patient has no known allergies or adverse reactions. Medications This patient has no known medications. Procedures This patient has no known procedures. Encounters Start End Encounter Admission Attending Care Care Encounter Source Date/Time Date/Time Type Type Clinicians Facility Department ID 2020-05-20 2020-05-20 Outpatient [id number] [facility] 10:23:00 10:23:00 Results This patient has no known results.
--- NOTE | 2020-10-04 12:47 | ER ---
Nurse's Notes [facility] Name: Mario Rosales Age: 55 yrs Sex: Male : 1965 Arrival Date: 10/04/2020 Time: 12:17 Bed 14 Private MD: Diagnosis: Dislocation of right acromioclavicular joint, 100%-200% displacement Presentation: 10/04 12:21 Chief complaint: Patient states: was carrying lumber on his right shoulder 4 days ago, iw thinks he lifted more than he should have, is having a lot of pain throughout the shoulder. Coronavirus screen: At this time, the client does not indicate any symptoms associated with coronavirus-19. Ebola Screen: Patient negative for fever greater than or equal to 101.5 degrees Fahrenheit, and additional compatible Ebola Virus Disease symptoms Patient denies exposure to infectious person. Patient denies travel to an Ebola-affected area in the 21 days before illness onset. No symptoms or risks identified at this time. Initial Sepsis Screen: Does the patient meet any 2 criteria? No. Patient's initial sepsis screen is negative. Does the patient have a suspected source of infection? No. Patient's initial sepsis screen is negative. Risk Assessment: Do you want to hurt yourself or someone else? Patient reports no desire to harm self or others. Onset of symptoms was September 30, 2020. 12:21 Method Of Arrival: Ambulatory 12:21 Acuity: KOMAL 4 iw Historical: - Allergies: 12:23 No Known Allergies; iw - PMHx: 12:23 ADD/ADHD; CHEMO; Leukemia; neck nerve pain; iw - PSHx: 12:23 shoulder surgery; Knee surgery; iw - Immunization history:: Adult Immunizations not up to date. - Social history:: Smoking status: Patient reports the use of cigarette tobacco products, smokes one-half pack cigarettes per day. - Family history:: not pertinent. Screenin:47 Abuse screen: Denies threats or abuse. Denies injuries from another. Nutritional hb screening: No deficits noted. Tuberculosis screening: No symptoms or risk factors identified. Fall Risk None identified. Assessment: 12:47 General: Appears in no apparent distress. Behavior is calm, cooperative. Pain: Pain hb currently is 8 out of 10 on a pain scale. Neuro: Level of Consciousness is awake, alert, obeys commands, Oriented to person, place, time, situation. Cardiovascular: Capillary refill < 3 seconds Patient's skin is warm and dry. Respiratory: Respiratory effort is even, unlabored, Respiratory pattern is regular, symmetrical. GI: No signs and/or symptoms were reported involving the gastrointestinal system. : No signs and/or symptoms were reported regarding the genitourinary system. EENT: No signs and/or symptoms were reported regarding the EENT system. Derm: Skin is pink, warm \T\ dry. Musculoskeletal: Reports right shoulder pain. Vital Signs: 12:21 BP 156 / 86; Pulse 91; Resp 16; Temp 98.3; Pulse Ox 98% on R/A; Weight 74.84 kg; Height iw 5 ft. 4 in. (162.56 cm); Pain 8/10; 12:21 Body Mass Index 28.32 (74.84 kg, 162.56 cm) iw ED Course: 12:17 Patient arrived in ED. ds1 12:18 Krish Randolph MD is Attending Physician. grace 12:23 Triage completed. iw 12:23 Arm band placed on. iw 12:42 Eliane Zaragoza, RN is Primary Nurse. hb 12:43 Shoulder Right (2 View) XRAY In Process Unspecified. EDMS 12:44 Mateo Gordon MD is Referral Physician. grace 12:47 Patient has correct armband on for positive identification. Bed in low position. Call hb light in reach. Side rails up X 1. 12:59 No provider procedures requiring assistance completed. Patient did not have IV access hb during this emergency room visit. Administered Medications: 12:46 Drug: Motrin 600 mg Route: PO; hb 12:58 Follow up: Response: Medication administered at discharge. hb Outcome: 12:46 Discharge ordered by . grace 12:59 Discharged to home ambulatory. hb 12:59 Condition: stable 12:59 Discharge instructions given to patient, Instructed on discharge instructions, follow up and referral plans. medication usage, Demonstrated understanding of instructions, follow-up care, medications, Prescriptions given X 2. 12:59 Patient left the ED. hb Signatures: Dispatcher [employer] EDVT Krish Randolph MD MD cha Sanford, Demi ds1 Sugey Orantes RN RN Eliane Zaragoza RN RN hb
--- NOTE | 2020-10-04 12:47 | EDPHYS ---
Physician Documentation [facility] Name: Mario Rosales Age: 55 yrs Sex: Male : 1965 Arrival Date: 10/04/2020 Time: 12:17 Bed 14 Private MD: ED Physician Krish Randolph HPI: 10/04 12:36 This 55 yrs old Male presents to ER via Ambulatory with complaints of grace Shoulder Pain. 12:36 The patient or guardian complains of decreased range of motion, pain. right trapezius grace and right clavicle. Context: The problem was sustained at work. Onset: The symptoms/episode began/occurred 2 day(s) ago. Modifying factors: the symptoms are alleviated by remaining still, sling, The symptoms are aggravated by lifting weight, movement, rotation of arm. Associated signs and symptoms: The patient has no apparent associated signs or symptoms. Severity of symptoms: At their worst the symptoms were moderate, in the emergency department the symptoms are unchanged. Treatment prior to arrival includes: no previous treatment. The patient has not experienced similar symptoms in the past. Historical: - Allergies: 12:23 No Known Allergies; iw - PMHx: 12:23 ADD/ADHD; CHEMO; Leukemia; neck nerve pain; iw - PSHx: 12:23 shoulder surgery; Knee surgery; iw - Immunization history:: Adult Immunizations not up to date. - Social history:: Smoking status: Patient reports the use of cigarette tobacco products, smokes one-half pack cigarettes per day. - Family history:: not pertinent. ROS: 12:36 Constitutional: Negative for fever, chills, and weight loss, Eyes: Negative for injury, grace pain, redness, and discharge, ENT: Negative for injury, pain, and discharge, Neck: Negative for injury, pain, and swelling, Cardiovascular: Negative for chest pain, palpitations, and edema, Respiratory: Negative for shortness of breath, cough, wheezing, and pleuritic chest pain, Abdomen/GI: Negative for abdominal pain, nausea, vomiting, diarrhea, and constipation, Back: Negative for injury and pain, : Negative for injury, bleeding, discharge, and swelling, Skin: Negative for injury, rash, and discoloration, Neuro: Negative for headache, weakness, numbness, tingling, and seizure, Psych: Negative for depression, anxiety, suicide ideation, homicidal ideation, and hallucinations, Allergy/Immunology: Negative for hives, rash, and allergies, Endocrine: Negative for neck swelling, polydipsia, polyuria, polyphagia, and marked weight changes, Hematologic/Lymphatic: Negative for swollen nodes, abnormal bleeding, and unusual bruising. 12:36 MS/extremity: Positive for decreased range of motion, pain, swelling, tenderness, of the anterior aspect of right shoulder and posterior aspect of right shoulder. Exam: 12:36 Constitutional: This is a well developed, well nourished patient who is awake, alert, grace and in no acute distress. Head/Face: Normocephalic, atraumatic. Eyes: Pupils equal round and reactive to light, extra-ocular motions intact. Lids and lashes normal. Conjunctiva and sclera are non-icteric and not injected. Cornea within normal limits. Periorbital areas with no swelling, redness, or edema. ENT: Nares patent. No nasal discharge, no septal abnormalities noted. Tympanic membranes are normal and external auditory canals are clear. Oropharynx with no redness, swelling, or masses, exudates, or evidence of obstruction, uvula midline. Mucous membranes moist. Neck: Trachea midline, no thyromegaly or masses palpated, and no cervical lymphadenopathy. Supple, full range of motion without nuchal rigidity, or vertebral point tenderness. No Meningismus. Chest/axilla: Normal chest wall appearance and motion. Nontender with no deformity. No lesions are appreciated. Respiratory: Lungs have equal breath sounds bilaterally, clear to auscultation and percussion. No rales, rhonchi or wheezes noted. No increased work of breathing, no retractions or nasal flaring. Back: No spinal tenderness. No costovertebral tenderness. Full range of motion. Male : Normal genitalia with no discharge or lesions. Skin: Warm, dry with normal turgor. Normal color with no rashes, no lesions, and no evidence of cellulitis. MS/ Extremity: Pulses equal, no cyanosis. Neurovascular intact. Full, normal range of motion. Neuro: Awake and alert, GCS 15, oriented to person, place, time, and situation. Cranial nerves II-XII grossly intact. Motor strength 5/5 in all extremities. Sensory grossly intact. Cerebellar exam normal. Normal gait. Psych: Awake, alert, with orientation to person, place and time. Behavior, mood, and affect are within normal limits. 12:36 Cardiovascular: Rate: normal, Rhythm: regular, Pulses: Pulses are 4+ in bilateral radial, brachial, femoral, popliteal, posterior tibial and and dorsalis pedis arteries.. Heart sounds: normal, murmur, not appreciated, Edema: is not appreciated, JVD: is not appreciated. Vital Signs: 12:21 BP 156 / 86; Pulse 91; Resp 16; Temp 98.3; Pulse Ox 98% on R/A; Weight 74.84 kg; Height iw 5 ft. 4 in. (162.56 cm); Pain 8/10; 12:21 Body Mass Index 28.32 (74.84 kg, 162.56 cm) iw MDM: 12:28 Patient medically screened. [facility] 12:40 Differential diagnosis: humeral head fracture, DJD, tendonitis. Data reviewed: vital grace signs, nurses notes, radiologic studies, plain films. Data interpreted: trimmer hand: not applicable for this patient encounter. Pulse oximetry: on room air is 98 %. Test interpretation: by ED physician or midlevel provider: plain radiologic studies. Counseling: I had a detailed discussion with the patient and/or guardian regarding: the historical points, exam findings, and any diagnostic results supporting the discharge/admit diagnosis, radiology results, the need for outpatient follow up, for definitive care, a orthopedic surgeon. 10/04 12:36 Order name: Shoulder Right (2 View) XRAY [facility] 10/04 12:36 Order name: Ice pack; Complete Time: 12:46 [facility] 10/04 12:55 Order name: Sling; Complete Time: 12:58 [facility] Administered Medications: 12:46 Drug: Motrin 600 mg Route: PO; 12:58 Follow up: Response: Medication administered at discharge. Disposition: 10/04/20 12:46 Discharged to Home. Impression: Dislocation of right acromioclavicular joint, 100%-200% displacement. - Condition is Stable. - Discharge Instructions: RICE for Routine Care of Injuries, Shoulder Separation, RICE for Routine Care of Injuries, [id number], Surgery for Acromioclavicular Separation, Care After With Rehab-SportsMed. - Prescriptions for Ibuprofen 600 mg Oral Tablet - take 1 tablet by ORAL route every 6 hours As needed take with food; 20 tablet. Tylenol- Codeine #3 300-30 mg Oral Tablet - take 2 tablets by ORAL route every 6 hours As needed; 26 tablet. - Medication Reconciliation Form, Thank You Letter, Antibiotic Education, Prescription Opioid Use form. - Follow up: Private Physician; When: 2 - 3 days; Reason: Recheck today's complaints, Continuance of care, Re-evaluation by your physician. Follow up: Mateo Gordon MD; When: 2 - 3 days; Reason: Recheck today's complaints, Continuance of care, Re-evaluation by your physician. - Problem is new. - Symptoms have improved. Signatures: Dispatcher [employer] EDKrish Lake MD MD cha Williams, Irene, RN RN Eliane Zaragoza RN RN Corrections: (The following items were deleted from the chart) 12:59 12:46 10/04/2020 12:46 Discharged to Home. Impression: Dislocation of right hb acromioclavicular joint, 100%-200% displacement. Condition is Stable. Forms are Medication Reconciliation Form, Thank You Letter, Antibiotic Education, Prescription Opioid Use. Follow up: Private Physician; When: 2 - 3 days; Reason: Recheck today's complaints, Continuance of care, Re-evaluation by your physician. Follow up: Mateo Gordon; When: 2 - 3 days; Reason: Recheck today's complaints, Continuance of care, Re-evaluation by your physician. Problem is new. Symptoms have improved. grace
[2020-10-04] MEDS ORDERED: IBUPROFEN 200 MG TAB PO ONE (12:56)
--- NOTE | 2020-10-04 12:57 | RAD REPORT ---
EXAM DESCRIPTION: RAD - Shoulder Right 2 View - 10/04/2020 12:42 pm CLINICAL HISTORY: Right shoulder pain FINDINGS: No fracture or dislocation is seen. Moderate to marked osteoarthritis AC joint consisting of osteophytes and joint space narrowing
[2020-10-04 13:05] VITALS: BP 156/86; TEMP 98.3; O2SAT 98
== END 2020-10-04 12:59 | disposition home or self-care (01) ==
LOC: ER 12:15
DX: S43.121A Dislocation of right acromioclavicular joint, 100%-200% displacement, initial encounter (principal); X50.0XXA Overexertion from strenuous movement or load, initial encounter; Y93.89 Activity, other specified; Y92.89 Other specified places as the place of occurrence of the external cause; Y99.8 Other external cause status; Z85.6 Personal history of leukemia; F17.210 Nicotine dependence, cigarettes, uncomplicated
CPT/HCPCS: 99283

== ENCOUNTER 2022-05-11 19:28 | Emergency (ER) | payer BC ==
[2022-05-11] MEDS ORDERED: MORPHINE 4 MG/ML SYR ONE (21:28)
[2022-05-11] MEDS ORDERED: DIAZEPAM 5 MG TABLET ONE (21:28)
[2022-05-11] MEDS ORDERED: NA CHLORIDE 0.9% 1,000 ML ONE ×2 (21:29→23:23)
[2022-05-11] MEDS ORDERED: ONDANSETRON 4 MG/2 ML VIAL ONE ×2 (21:29→23:52)
[2022-05-11] MEDS ORDERED: dexAMETHasone 10 MG/ML VIAL ONE (21:29)
[2022-05-11] MEDS ORDERED: KETOROLAC 30 MG/ML INJ ONE (21:29)
[2022-05-11 21:54] LABS: Absolute Lymphocytes (CBC) 1.2 K/uL (0.7-4.9); Hematocrit 42.2 % (39.6-49.0); Lymphocytes % 13.2 % (15.3-44.8); MPV 10.6 fL (7.6-11.3); RBC Red Blood Cell Count 4.75 M/uL (4.33-5.43)
[2022-05-11 22:04] LABS: Albumin 4.3 g/dL (3.4-5.0); Bilirubin Total 0.2 mg/dL (0.2-1.0); Potassium 4.3 mmol/L (3.5-5.1); Protein, Total 7.9 g/dL (6.4-8.2)
[2022-05-11 23:24] LABS: Urine Blood Negative (Negative); Urine Glucose Negative (Negative); Urine Protein Negative (Negative)
[2022-05-11] MEDS ORDERED: HYDROMORPHONE HCL 1 MG/ML INJ ONE (23:52)
[2022-05-12] MEDS ORDERED: DIAZEPAM 2 MG TABLET ONE (00:17)
--- NOTE | 2022-05-12 00:21 | EDPHYS ---
Physician Documentation [facility] Name: Mario Rosales Age: 56 yrs Sex: Male : 1965 Arrival Date: 05/11/2022 Time: 19:32 Bed 11 Private MD: ED Physician Krish Randolph HPI: 05/11 20:53 This 56 yrs old Male presents to ER via Ambulatory with complaints of Low grace Back Pain. 20:53 The patient presents with pain that is acute, and decreased range of motion, and an grace injury. The symptoms are located in the T1, T2, T3, T4 and T5. The pain radiates to the right arm. The problem was sustained from a direct blow, during a fall, mowing, fall into tree. Onset: The symptoms/episode began/occurred 3 day(s) ago. Modifying factors: The patient symptoms are alleviated by nothing, remaining still, the patient symptoms are aggravated by any movement, bending, coughing, lifting, movement. Associated signs and symptoms: The patient has no apparent associated signs or symptoms. Severity of symptoms: At their worst the symptoms were mild, in the emergency department the symptoms are unchanged. The patient has experienced similar episodes in the past, several times. Historical: - Allergies: 20:08 No Known Allergies; ld1 - PMHx: 20:07 ADD/ADHD; CHEMO; Leukemia; neck nerve pain; ld1 - PSHx: 20:07 None; ld1 - Immunization history:: Adult Immunizations up to date, Client reports receiving the 2nd dose of the Covid vaccine. - Social history:: Smoking status: Patient reports the use of cigarette tobacco products, smokes one-half pack cigarettes per day, Patient/guardian denies using alcohol. - Family history:: not pertinent. ROS: 20:53 Constitutional: Negative for fever, chills, and weight loss, Eyes: Negative for injury, grace pain, redness, and discharge, ENT: Negative for injury, pain, and discharge, Neck: Negative for injury, pain, and swelling, Cardiovascular: Negative for chest pain, palpitations, and edema, Respiratory: Negative for shortness of breath, cough, wheezing, and pleuritic chest pain, Abdomen/GI: Negative for abdominal pain, nausea, vomiting, diarrhea, and constipation, : Negative for injury, bleeding, discharge, and swelling, MS/Extremity: Negative for injury and deformity, Skin: Negative for injury, rash, and discoloration, Neuro: Negative for headache, weakness, numbness, tingling, and seizure, Psych: Negative for depression, anxiety, suicide ideation, homicidal ideation, and hallucinations, Allergy/Immunology: Negative for hives, rash, and allergies, Endocrine: Negative for neck swelling, polydipsia, polyuria, polyphagia, and marked weight changes, Hematologic/Lymphatic: Negative for swollen nodes, abnormal bleeding, and unusual bruising. 20:53 Back: Positive for decreased range of motion, pain at rest, pain with movement, of the thoracic area. Exam: 20:53 Constitutional: This is a well developed, well nourished patient who is awake, alert, grace and in no acute distress. Head/Face: Normocephalic, atraumatic. Eyes: Pupils equal round and reactive to light, extra-ocular motions intact. Lids and lashes normal. Conjunctiva and sclera are non-icteric and not injected. Cornea within normal limits. Periorbital areas with no swelling, redness, or edema. ENT: Nares patent. No nasal discharge, no septal abnormalities noted. Tympanic membranes are normal and external auditory canals are clear. Oropharynx with no redness, swelling, or masses, exudates, or evidence of obstruction, uvula midline. Mucous membranes moist. Neck: Trachea midline, no thyromegaly or masses palpated, and no cervical lymphadenopathy. Supple, full range of motion without nuchal rigidity, or vertebral point tenderness. No Meningismus. Chest/axilla: Normal chest wall appearance and motion. Nontender with no deformity. No lesions are appreciated. Cardiovascular: Regular rate and rhythm with a normal S1 and S2. No gallops, murmurs, or rubs. Normal PMI, no JVD. No pulse deficits. Respiratory: Lungs have equal breath sounds bilaterally, clear to auscultation and percussion. No rales, rhonchi or wheezes noted. No increased work of breathing, no retractions or nasal flaring. Abdomen/GI: Soft, non-tender, with normal bowel sounds. No distension or tympany. No guarding or rebound. No evidence of tenderness throughout. Male : Normal genitalia with no discharge or lesions. Skin: Warm, dry with normal turgor. Normal color with no rashes, no lesions, and no evidence of cellulitis. MS/ Extremity: Pulses equal, no cyanosis. Neurovascular intact. Full, normal range of motion. Neuro: Awake and alert, GCS 15, oriented to person, place, time, and situation. Cranial nerves II-XII grossly intact. Motor strength 5/5 in all extremities. Sensory grossly intact. Cerebellar exam normal. Normal gait. Psych: Awake, alert, with orientation to person, place and time. Behavior, mood, and affect are within normal limits. 20:53 Back: pain, that is moderate, ROM is painful, normal spinal alignment noted, CVA tenderness, is absent, muscle spasm, is appreciated in the left subscapular area, right subscapular area, left low back, left mid back, right mid back and right low back. Vital Signs: 20:06 BP 135 / 107; Pulse 63; Resp 18; Temp 98.8(TE); Pulse Ox 99% on R/A; Weight 74.84 kg; ld1 Height 5 ft. 4 in. (162.56 cm); Pain 10/10; 05/12 00:00 BP 132 / 80; Pulse 58; Resp 16; Pulse Ox 99% on R/A; vc1 05/11 20:06 Body Mass Index 28.32 (74.84 kg, 162.56 cm) ld1 MDM: 05/11 20:16 Patient medically screened. grace 20:59 Differential diagnosis: arthritis, strain, fracture, contusion, Herniated disc. Data grace reviewed: vital signs, nurses notes, lab test result(s), CBC, electrolytes, hepatic panel, urinalysis, EKG, radiologic studies. Data interpreted: conveyor monitor: rate is 63 beats/min, rhythm is regular, Pulse oximetry: on room air is 99 %. Test interpretation: by ED physician or midlevel provider: ECG. Counseling: I had a detailed discussion with the patient and/or guardian regarding: the historical points, exam findings, and any diagnostic results supporting the discharge/admit diagnosis, lab results, radiology results. 05/11 20:53 Order name: CBC with Diff; Complete Time: 22:33 grace 05/11 20:53 Order name: Comprehensive Metabolic Panel; Complete Time: 22:33 grace 05/11 20:53 Order name: CT Chest, Abdomen, Pelvis - W/Contrast [facility] 05/11 23:24 Order name: Urine Dipstick-Ancillary; Complete Time: 23:38 EDKS 05/11 20:53 Order name: Urine Dipstick-Ancillary (obtain specimen); Complete Time: 23:24 [facility] Administered Medications: 21:40 Drug: Zofran (Ondansetron) 4 mg Route: IVP; Site: right antecubital; vc1 05/12 01:00 Follow up: Response: No adverse reaction vc1 05/11 21:40 Drug: Valium (diazepam) 5 mg Route: PO; vc1 05/12 00:59 Follow up: Response: No adverse reaction vc1 05/11 21:41 Drug: Ketorolac 30 mg Route: IVP; Site: right antecubital; vc1 23:00 Follow up: Response: No adverse reaction; Pain is decreased vc1 21:41 Drug: Decadron - Dexamethasone 10 mg Route: IVP; Site: right antecubital; vc1 05/12 01:01 Follow up: Response: No adverse reaction vc1 05/11 21:41 Drug: morphine 4 mg Route: IVP; Infused Over: 4 mins; Site: right antecubital; vc1 23:00 Follow up: Response: No adverse reaction vc1 21:42 Drug: NS 0.9% 1000 ml Route: IV; Rate: 1 bolus; Site: right antecubital; vc1 22:42 Follow up: IV Status: Completed infusion; IV Intake: 1000ml vc1 23:24 Drug: NS 0.9% 1000 ml Route: IV; Rate: 1 bolus; Site: right antecubital; vc1 05/12 00:24 Follow up: IV Intake: 1000ml vc1 00:59 Follow up: IV Status: Completed infusion; IV Intake: 1000ml vc1 00:08 Drug: Dilaudid (HYDROmorphone) 1 mg Route: IVP; Site: right antecubital; vc1 00:56 Follow up: Response: No adverse reaction; No change in condition vc1 00:08 Drug: Zofran (Ondansetron) 4 mg Route: IVP; Site: right antecubital; vc1 00:55 Follow up: Response: No adverse reaction; Marked relief of symptoms vc1 00:08 Not Given (wrong dosee): Valium (diazepam) 5 mg PO once vc1 00:14 Drug: Valium (diazepam) 6 mg Route: PO; vc1 00:55 Follow up: Response: No adverse reaction vc1 Disposition Summary: 05/12/22 00:20 Discharge Ordered Location: Home grace Problem: new grace Symptoms: have improved grace Condition: Stable grace Diagnosis - Strain of muscle and tendon of back wall of thorax grace - Strain of muscle and tendon of thorax grace - Solitary pulmonary nodule - 9 mm, spiculated, unchanged grace - Unspecified fracture of sternum, sequela - non union grace Followup: grace - With: Private Physician - When: 2 - 3 days - Reason: Recheck today's complaints, Continuance of care, Re-evaluation by your physician Followup: grace - With: Sherwin Dennison MD - When: 2 - 3 days - Reason: Recheck today's complaints, Re-evaluation by your physician Discharge Instructions: - Discharge Summary Sheet grace - Thoracic Strain grace - Pulmonary Nodule grace - Pulmonary Nodule, [id number] grace - Thoracic Strain, [id number] grace Forms: - Medication Reconciliation Form grace - Thank You Letter grace - Antibiotic Education grace - Prescription Opioid Use grace Prescriptions: - Valium 5 mg Oral Tablet - take 1 tablet by ORAL route every 8 hours As needed; 20 tablet; Refills: 0, grace Product Selection Permitted - Diclofenac Sodium 75 mg Oral tablet,delayed release (DR/EC) - take 1 tablet by ORAL route 2 times per day; 20 tablet; Refills: 0, Product grace Selection Permitted - Medrol (Chris) 4 mg Oral Tablets, Dose Pack - take 1 tablet by ORAL route as directed - follow package instructions; 1 grace packet; Refills: 0, Product Selection Permitted - Tylenol-Codeine #3 300 mg-30 mg Oral - take 2 tablet by ORAL route every 6 hours; 20 tablet; Refills: 0, Product grace Selection Permitted Signatures: Dispatcher [employer] Krish Grubbs MD MD cha Dibbern, Lauren RN RN ld1 Majo Pierson RN RN vc1
--- NOTE | 2022-05-12 00:21 | ER ---
Nurse's Notes [facility] Name: Mario Rosales Age: 56 yrs Sex: Male : 1965 Arrival Date: 05/11/2022 Time: 19:32 Bed 11 Private MD: Diagnosis: Strain of muscle and tendon of back wall of thorax;Strain of muscle and tendon of thorax;Solitary pulmonary nodule-9 mm, spiculated, unchanged;Unspecified fracture of sternum, sequela-non union Presentation: 05/11 20:06 Chief complaint: Patient states: Lifted a heavy box yesterday - Severe back pain today. ld1 "Feels like the pain I had when I had a fractured sternum.". Coronavirus screen: At this time, the client does not indicate any symptoms associated with coronavirus-19. Ebola Screen: No symptoms or risks identified at this time. Initial Sepsis Screen: Does the patient meet any 2 criteria? No. Patient's initial sepsis screen is negative. Does the patient have a suspected source of infection? No. Patient's initial sepsis screen is negative. Risk Assessment: Do you want to hurt yourself or someone else? Patient reports no desire to harm self or others. Onset of symptoms was May 11, 2022 at 20:07. 20:06 Method Of Arrival: Ambulatory ld1 20:06 Acuity: KOMAL 4 ld1 Triage Assessment: 20:08 General: Appears in no apparent distress. comfortable, Behavior is calm, cooperative, ld1 appropriate for age. Pain: Complains of pain in back Pain does not radiate. Pain currently is 10 out of 10 on a pain scale. EENT: No signs and/or symptoms were reported regarding the EENT system. Neuro: Level of Consciousness is awake, alert, obeys commands, Oriented to person, place, time, situation. Cardiovascular: Capillary refill < 3 seconds Patient's skin is warm and dry. Respiratory: Airway is patent Respiratory effort is even, unlabored. GI: Abdomen is flat, non-distended. : No signs and/or symptoms were reported regarding the genitourinary system. Derm: No signs and/or symptoms reported regarding the dermatologic system. Musculoskeletal: No signs and/or symptoms reported regarding the musculoskeletal system. Historical: - Allergies: 20:08 No Known Allergies; ld1 - PMHx: 20:07 ADD/ADHD; CHEMO; Leukemia; neck nerve pain; ld1 - PSHx: 20:07 None; ld1 - Immunization history:: Adult Immunizations up to date, Client reports receiving the 2nd dose of the Covid vaccine. - Social history:: Smoking status: Patient reports the use of cigarette tobacco products, smokes one-half pack cigarettes per day, Patient/guardian denies using alcohol. - Family history:: not pertinent. Screenin:30 Abuse screen: Denies threats or abuse. Nutritional screening: No deficits noted. vc1 Tuberculosis screening: No symptoms or risk factors identified. Fall Risk None identified. Vital Signs: 20:06 BP 135 / 107; Pulse 63; Resp 18; Temp 98.8(TE); Pulse Ox 99% on R/A; Weight 74.84 kg; ld1 Height 5 ft. 4 in. (162.56 cm); Pain 10/10; 05/12 00:00 BP 132 / 80; Pulse 58; Resp 16; Pulse Ox 99% on R/A; vc1 05/11 20:06 Body Mass Index 28.32 (74.84 kg, 162.56 cm) ld1 ED Course: 05/11 19:32 Patient arrived in ED. [id number] 20:07 Triage completed. ld1 20:08 Arm band placed on right wrist. ld1 20:16 Krish Randolph MD is Attending Physician. grace 21:00 Patient has correct armband on for positive identification. vc1 22:31 CT Chest, Abdomen, Pelvis - W/Contrast In Process Unspecified. EDMS 05/12 00:22 Sherwin Dennison MD is Referral Physician. grace 00:52 No provider procedures requiring assistance completed. IV discontinued, intact, vc1 bleeding controlled, No redness/swelling at site. Pressure dressing applied. Administered Medications: 05/11 21:40 Drug: Zofran (Ondansetron) 4 mg Route: IVP; Site: right antecubital; vc1 05/12 01:00 Follow up: Response: No adverse reaction vc1 05/11 21:40 Drug: Valium (diazepam) 5 mg Route: PO; vc1 05/12 00:59 Follow up: Response: No adverse reaction vc1 05/11 21:41 Drug: Ketorolac 30 mg Route: IVP; Site: right antecubital; vc1 23:00 Follow up: Response: No adverse reaction; Pain is decreased vc1 21:41 Drug: Decadron - Dexamethasone 10 mg Route: IVP; Site: right antecubital; vc1 05/12 01:01 Follow up: Response: No adverse reaction vc1 05/11 21:41 Drug: morphine 4 mg Route: IVP; Infused Over: 4 mins; Site: right antecubital; vc1 23:00 Follow up: Response: No adverse reaction vc1 21:42 Drug: NS 0.9% 1000 ml Route: IV; Rate: 1 bolus; Site: right antecubital; vc1 22:42 Follow up: IV Status: Completed infusion; IV Intake: 1000ml vc1 23:24 Drug: NS 0.9% 1000 ml Route: IV; Rate: 1 bolus; Site: right antecubital; vc1 05/12 00:24 Follow up: IV Intake: 1000ml vc1 00:59 Follow up: IV Status: Completed infusion; IV Intake: 1000ml vc1 00:08 Drug: Dilaudid (HYDROmorphone) 1 mg Route: IVP; Site: right antecubital; vc1 00:56 Follow up: Response: No adverse reaction; No change in condition vc1 00:08 Drug: Zofran (Ondansetron) 4 mg Route: IVP; Site: right antecubital; vc1 00:55 Follow up: Response: No adverse reaction; Marked relief of symptoms vc1 00:08 Not Given (wrong dosee): Valium (diazepam) 5 mg PO once vc1 00:14 Drug: Valium (diazepam) 6 mg Route: PO; vc1 00:55 Follow up: Response: No adverse reaction vc1 Medication: 00:55 VIS not applicable for this client. vc1 Intake: 05/11 22:42 IV: 1000ml; Total: 1000ml. vc1 05/12 00:24 IV: 1000ml; Total: 2000ml. vc1 00:59 IV: 1000ml; Total: 3000ml. vc1 Outcome: 00:20 Discharge ordered by MD. edwards 00:54 Discharged to home ambulatory, with significant other. vc1 00:54 Condition: improved 00:54 Discharge instructions given to patient, significant other, Instructed on discharge instructions, follow up and referral plans. medication usage, Demonstrated understanding of instructions, follow-up care, medications, Prescriptions given X 4. 01:03 Patient left the ED. vc1 Signatures: Dispatcher [employer] EDKrish Lake MD MD cha Dibbern, Lauren RN RN ld1 Vita [id number] Majo Pierson RN RN vc1
[2022-05-12 01:09] VITALS: TEMP 98.8; O2SAT 99
[2022-05-12 01:15] VITALS: BP 132/80
--- NOTE | 2022-05-12 11:18 | RAD REPORT ---
EXAM DESCRIPTION: CT - Chest Abdomen Pelvis W Cont - 05/12/2022 6:36 am CLINICAL HISTORY: 56 years Male thoracic pain TECHNIQUE: CT chest, abdomen, pelvis protocol using intravenous contrast. All CT scans at this [facility] it use dose modulation, iterative reconstruction, and/or weight based dosing when appropriate to red uce radiation dose to as low as reasonably achievable. COMPARISON: TA chest 10/16/2021. FINDINGS: Chest: Lungs: Unchanged mildly spiculated 9 x 6 mm nodule in the right lung apex medially. A 3 mm groundglas s nodule in the right upper lobe anterolaterally. Minimal bibasilar dependent atelectasis. Pleura: No pneumothorax. No pleural effusion. Mediastinum: No adenopathy. No pericardial effusion. Vascular: No aneurysm or dissection. Prominence of the pulmonary arteries again noted. Bones: Remote sternal fracture with nonunion. Soft tissues: Unremarkable. Abdomen/Pelvis: Liver: Unchanged mild intrahepatic biliary dilation. No focal lesion. Gallbladder: No calcified stone. Pancreas: Unremarkable. Spleen: Within normal limits. Kidney: No stone or hydronephrosis. 6 mm cyst in the upper pole of the right kidney. Adrenal glands: Within normal limits. Vascular structures: Unremarkable. Bowel: Large amount of stool throughout the colon. No bowel distention. Appendix: Normal. Peritoneum: No free fluid or free air. Lymph Nodes: No lymphadenopathy. Reproductive: Unremarkable. Urinary bladder: Unremarkable. Osseous structures: Mild multilevel degenerative changes. Soft tissues: Left greater than right fat-containing inguinal hernias. IMPRESSION: 1. No acute findings in the chest, abdomen and pelvis. 2. Unchanged mildly spiculated 9 mm nodule in the right lung apex medially. Recommend follow-up in 3- 6 months. 3. Remote sternal fracture with nonunion. Electronically signed by: Ronald Deleon MD 05/11/2022 11:28 PM CDT Due to temporary technical issues with the PACS/Fluency reporting system, reports are being signed by the in house radiologist without review as a courtesy to ensure prompt reporting. The interpreting r adiologist is fully responsible for the content of the report.
== END 2022-05-12 01:03 | disposition home or self-care (01) ==
LOC: ER 19:28
DX: S29.012A Strain of muscle and tendon of back wall of thorax, initial encounter (principal); R91.1 Solitary pulmonary nodule; S22.20XS Unspecified fracture of sternum, sequela; F17.210 Nicotine dependence, cigarettes, uncomplicated; Z85.6 Personal history of leukemia
CPT/HCPCS: 85025; 36415; 81003; 80053; 71260; 74177; Q9967; J1100; J1170; J7030 ×2; J2405 ×2

== ENCOUNTER 2022-05-14 08:22 | Emergency (ER) | payer BC ==
--- OUTSIDE RECORDS SUMMARY | 2022-05-14 08:24 | XMS REPORT | Continuity of Care Document ---
:1965 Author Organization [facility] t Address [address] [place] [address] [place] [id number] Care Team Providers Name Role Phone FRANCISCO SMITH Attending Clinician Unavailable Problems This patient has no known problems. Allergies, Adverse Reactions, Alerts This patient has no known allergies or adverse reactions. Medications This patient has no known medications. Procedures This patient has no known procedures. Encounters Start End Encounter Admission Attending Care Care Encounter Source Date/Time Date/Time Type Type Clinicians Facility Department ID 2020-05-20 2020-05-20 Outpatient MARINA SMITH [id number] 10:23:00 10:23:00 MARIELOS Results This patient has no known results.
[2022-05-14] MEDS ORDERED: NA CHLORIDE 0.9% 1,000 ML ONE (08:44)
[2022-05-14] MEDS ORDERED: MORPHINE 4 MG/ML SYR ONE (08:44)
[2022-05-14] MEDS ORDERED: ONDANSETRON 4 MG/2 ML VIAL ONE (08:44)
[2022-05-14 08:58] LABS: Absolute Lymphocytes (CBC) 1.5 K/uL (0.7-4.9); Hematocrit 40.8 % (39.6-49.0); Lymphocytes % 18.3 % (15.3-44.8); RBC Red Blood Cell Count 4.61 M/uL (4.33-5.43)
[2022-05-14 09:28] LABS: Albumin 3.7 g/dL (3.4-5.0); Bilirubin Total 0.3 mg/dL (0.2-1.0); Potassium 3.6 mmol/L (3.5-5.1); Protein, Total 7.2 g/dL (6.4-8.2)
[2022-05-14 09:43] LABS: Blood Morphology Comment NOT SEEN (NOT SEEN); Platelet Estimate ADEQ; Platelets, Giant FEW; White Blood Cell Scan OK (OK)
--- NOTE | 2022-05-14 10:06 | RAD REPORT ---
EXAM DESCRIPTION: CT - Abdomen Pelvis W Contrast - 05/14/2022 9:45 am CLINICAL HISTORY: abdominal pain COMPARISON: Chest Abdomen Pelvis W Cont dated 05/11/2022 TECHNIQUE: Biphasic, helical CT imaging of the abdomen and pelvis was performed following 100 ml non -ionic IV contrast. No oral contrast was administered. All CT scans are performed using dose optimization technique as appropriate and may include automated exposure control or mA/KV adjustment according to patient size. FINDINGS: No suspicious findings in the lung bases. No focal lesion in the liver parenchyma. No spleen or pancreatic acute finding. Gallbladder is normal size with no acute findings seen. Intrahepatic mild biliary dilatation is present similar to the Apr study. No pancreatic head mass identified. The extrahepatic biliary tree is not dilated. Duct st ones can be occult. Patient has a periportal edema pattern as well which is nonspecific and can be se en with acute hepatic parenchymal disease or is a systemic response to process not otherwise evident on this examination. Symmetric renal function is seen with no hydronephrosis or suspicious renal mass. No pyelonephritis o r acute parenchymal process. Partially filled urinary bladder shows no suspicious findings. No adrena l abnormalities. No gastric dilatation or gastric wall thickening. Lam of the stomach are accentuated due to absent content within the lumen. No dilated small bowel loops. Patient has a moderately large stool volume f illing but not dilating the colon. Rectum is distended by stool. No appendicitis findings. Appendix i s normal diameter with air seen within the lumen. No free air, free fluid or inflammatory stranding. No mass or bulky lymphadenopathy seen. Fat fill ed bilateral inguinal hernias are present. No congested or edematous fat. No change from the prior udy. No abdominal wall hematoma or mass. No skeletal muscle abnormality. Disc and bone degenerative changes are present. No acute bone process seen. Disc degenerative changes are most pronounced at the L4-5 level. L5 is a transition body. IMPRESSION: Contrast enhanced CT abdomen and pelvis showing no appendicitis or other emergent findin g. Bilateral fat filled inguinal hernias are present similar to the May 11 examination. No bowel is inv olved. There is no congested or edematous fat. Intrahepatic biliary tree mild dilatation is present without extrahepatic dilatation. This pattern is similar to the May 11 study. Correlation is needed with any biliary obstructive clinical or laborat ory abnormalities.
[2022-05-14 10:46] LABS: Urine Blood Negative (Negative); Urine Glucose Negative (Negative); Urine Protein Negative (Negative); Urine Specific Gravity 1.015 (1.005-1.030); Urine pH 6.5 (5.0-7.0)
--- NOTE | 2022-05-14 10:49 | EDPHYS ---
Physician Documentation [facility] Name: Mario Rosales Age: 56 yrs Sex: Male : 1965 Arrival Date: 05/14/2022 Time: 08:23 Bed 18 Private MD: Parrish Malagon H ED Physician Taylor Urias HPI: 05/14 08:55 This 56 yrs old Male presents to ER via Wheelchair with complaints of Abdominal Pain. kb 08:55 The patient presents with abdominal pain. Onset: The symptoms/episode began/occurred kb last night. The symptoms do not radiate. Associated signs and symptoms: none. The symptoms are described as constant. Modifying factors: The symptoms are alleviated by nothing, the symptoms are aggravated by nothing. Severity of pain: At its worst the pain was moderate in the emergency department the pain is unchanged. The patient has not experienced similar symptoms in the past. The patient has not recently seen a physician. 09:33 Pt reports left abd pain, more intense in lower abd/groin. Denies testicular pain. . kb Historical: - Allergies: 08:27 No Known Allergies; iw - PMHx: 08:27 ADD/ADHD; CHEMO; Leukemia; neck nerve pain; iw - PSHx: 08:27 None; iw - Immunization history:: Adult Immunizations. - Social history:: Smoking status: Patient denies any tobacco usage or history of. ROS: 08:55 Constitutional: Negative for fever, chills, and weight loss. kb 08:55 Abdomen/GI: Positive for abdominal pain. 08:55 All other systems are negative. Exam: 08:55 Constitutional: This is a well developed, well nourished patient who is awake, alert, kb and in no acute distress. Head/Face: Normocephalic, atraumatic. ENT: Moist Mucous membranes Cardiovascular: Regular rate and rhythm with a normal S1 and S2. No gallops, murmurs, or rubs. No pulse deficits. Respiratory: Respirations even and unlabored. No increased work of breathing. Talking in full sentences Skin: Warm, dry with normal turgor. Normal color. MS/ Extremity: Pulses equal, no cyanosis. Neurovascular intact. Full, normal range of motion. Neuro: Awake and alert, GCS 15, oriented to person, place, time, and situation. Moves all extremities. Normal gait. Psych: Awake, alert, with orientation to person, place and time. Behavior, mood, and affect are within normal limits. 08:55 Abdomen/GI: Inspection: abdomen appears normal, Bowel sounds: normal, Palpation: soft, in all quadrants, mild abdominal tenderness, in the left lower quadrant. Vital Signs: 08:26 BP 161 / 97; Pulse 71; Resp 16; Temp 97.7; Pulse Ox 100% ; Weight 74.84 kg; Height 5 iw ft. 4 in. (162.56 cm); Pain 10/10; 09:13 BP 171 / 78; Pulse 58; Resp 17; Pulse Ox 99% ; torres 08:26 Body Mass Index 28.32 (74.84 kg, 162.56 cm) iw MDM: 08:32 Patient medically screened. kb 08:55 Data reviewed: vital signs, nurses notes. Data interpreted: Pulse oximetry: on room air kb is 100 %. Interpretation: normal. 10:48 Counseling: I had a detailed discussion with the patient and/or guardian regarding: the kb historical points, exam findings, and any diagnostic results supporting the discharge/admit diagnosis, lab results, radiology results, the need for outpatient follow up, a family practitioner, to return to the emergency department if symptoms worsen or persist or if there are any questions or concerns that arise at home. 05/14 08:35 Order name: CBC with Diff; Complete Time: 09:45 kb 05/14 08:35 Order name: CMP; Complete Time: 09:32 kb 05/14 08:35 Order name: Lipase; Complete Time: 09:32 kb 05/14 08:35 Order name: CT Abd/Pelvis - IV Contrast Only; Complete Time: 10:09 kb 05/14 09:00 Order name: CBC Smear Scan; Complete Time: 09:45 EDMS 05/14 10:47 Order name: Urine Dipstick-Ancillary; Complete Time: 10:48 EDMS 05/14 08:35 Order name: IV Saline Lock; Complete Time: 08:47 kb 05/14 08:35 Order name: Labs collected and sent; Complete Time: 08:47 kb 05/14 08:35 Order name: Urine Dipstick-Ancillary (obtain specimen); Complete Time: 10:00 kb Administered Medications: 08:47 Drug: NS 0.9% 1000 ml Route: IV; Rate: 1 bolus; Site: right antecubital; torres 08:47 Drug: Zofran (Ondansetron) 4 mg Route: IVP; Site: right antecubital; torres 08:47 Follow up: Response: No adverse reaction torres 08:47 Drug: morphine 4 mg Route: IVP; Infused Over: 4 mins; Site: right antecubital; torres 08:47 Follow up: Response: No adverse reaction torres 10:56 Drug: [place] (HYDROcodone-acetaminophen) 10 mg-325 mg 1 tabs Route: PO; torres 10:56 Follow up: Response: No adverse reaction torres Disposition: 14:38 Co-signature as Attending Physician, Taylor Urias MD I agree with the assessment ma2 and plan of care. Disposition Summary: 05/14/22 10:49 Discharge Ordered Location: Home kb Condition: Stable kb Diagnosis - Abdominal pain, Generalized kb Followup: kb - With: Emergency Department - When: As needed - Reason: Worsening of condition Followup: kb - With: Private Physician - When: 2 - 3 days - Reason: Recheck today's complaints, Continuance of care, Re-evaluation by your physician Discharge Instructions: - Discharge Summary Sheet kb - Abdominal Pain, Adult, [id number] kb Forms: - Medication Reconciliation Form kb - Thank You Letter kb - Antibiotic Education kb - Prescription Opioid Use kb Prescriptions: - Diclofenac Sodium 75 mg Oral tablet,delayed release (DR/EC) - take 1 tablet by ORAL route 2 times per day As needed; 30 tablet; Refills: 0, kb Product Selection Permitted Signatures: Dispatcher [employer] Jennifer Cohen, SENG MARTINEZ-Sugey Sweeney, RN HARMEET Taylor Urias MD MD [facility] Dennise-Eliane Cruz RN RN
--- NOTE | 2022-05-14 10:49 | ER ---
Nurse's Notes [facility] Name: Mario Rosales Age: 56 yrs Sex: Male : 1965 Arrival Date: 05/14/2022 Time: 08:23 Bed 18 Private MD: Parrish Malagon H Diagnosis: Abdominal pain, Generalized Presentation: 05/14 08:26 Chief complaint: Patient states: abd pain radiating into left groin and testicle , iw started last night. Coronavirus screen: At this time, the client does not indicate any symptoms associated with coronavirus-19. Ebola Screen: Patient negative for fever greater than or equal to 101.5 degrees Fahrenheit, and additional compatible Ebola Virus Disease symptoms Patient denies exposure to infectious person. Patient denies travel to an Ebola-affected area in the 21 days before illness onset. No symptoms or risks identified at this time. Initial Sepsis Screen: Does the patient meet any 2 criteria? No. Patient's initial sepsis screen is negative. Does the patient have a suspected source of infection? No. Patient's initial sepsis screen is negative. Risk Assessment: Do you want to hurt yourself or someone else? Patient reports no desire to harm self or others. Onset of symptoms was May 13, 2022. 08:26 Method Of Arrival: Wheelchair iw 08:26 Acuity: KOMAL 3 iw Triage Assessment: 08:31 General: Appears uncomfortable, Behavior is calm, cooperative. GI: Abdomen is torres non-distended, Reports Pain is 9 out of 10 on a pain scale. : Reports pain testicle, groin. Historical: - Allergies: 08:27 No Known Allergies; iw - PMHx: 08:27 ADD/ADHD; CHEMO; Leukemia; neck nerve pain; iw - PSHx: 08:27 None; iw - Immunization history:: Adult Immunizations. - Social history:: Smoking status: Patient denies any tobacco usage or history of. Screenin:30 Abuse screen: Denies threats or abuse. Denies injuries from another. Nutritional torres screening: No deficits noted. Tuberculosis screening: No symptoms or risk factors identified. Fall Risk None identified. Assessment: 08:30 Pain: Complains of pain in abdomen Pain radiates to pelvis/ groin. torres 08:32 GI: Bowel sounds present X 4 quads. Abd is non tender X 4 quads. torres Vital Signs: 08:26 BP 161 / 97; Pulse 71; Resp 16; Temp 97.7; Pulse Ox 100% ; Weight 74.84 kg; Height 5 iw ft. 4 in. (162.56 cm); Pain 10/10; 09:13 BP 171 / 78; Pulse 58; Resp 17; Pulse Ox 99% ; torres 08:26 Body Mass Index 28.32 (74.84 kg, 162.56 cm) iw ED Course: 08:23 Patient arrived in ED. rg4 08:23 Parrish Malagon DO is Private Physician. rg4 08:27 Triage completed. iw 08:30 Eliane Mederos, RN is Primary Nurse. torres 08:30 Patient has correct armband on for positive identification. Bed in low position. torres 08:30 No provider procedures requiring assistance completed. torres 08:31 Arm band placed on. torres 08:32 [facility] Patel [facility]-C [facility]. kb 08:32 Krish Randolph MD is Attending Physician. kb 08:32 Taylor Urias MD is Attending Physician. kb 08:43 Call light in reach. Side rails up X 1. Door closed. Noise minimized. mb7 08:48 Inserted saline lock: 18 gauge in right antecubital area, using aseptic technique. torres 09:47 CT Abd/Pelvis - IV Contrast Only In Process Unspecified. EDMS 11:09 IV discontinued, intact, Pressure dressing applied. torres Administered Medications: 08:47 Drug: NS 0.9% 1000 ml Route: IV; Rate: 1 bolus; Site: right antecubital; torres 08:47 Drug: Zofran (Ondansetron) 4 mg Route: IVP; Site: right antecubital; torres 08:47 Follow up: Response: No adverse reaction torres 08:47 Drug: morphine 4 mg Route: IVP; Infused Over: 4 mins; Site: right antecubital; torres 08:47 Follow up: Response: No adverse reaction torres 10:56 Drug: [place] (HYDROcodone-acetaminophen) 10 mg-325 mg 1 tabs Route: PO; torres 10:56 Follow up: Response: No adverse reaction torres Medication: 08:30 VIS not applicable for this client. torres Outcome: 10:49 Discharge ordered by MD. kb 11:09 Discharged to home with family. brian 11:09 Condition: good 11:09 Discharge instructions given to patient, family. 11:09 Patient left the ED. torres Signatures: Dispatcher [employer] Jennifer Cohen FNP-C FNP-Sugey Sweeney, RN Елена Goode rg4 Terese Scruggs mb7 Eliane Mederos RN RN ha
[2022-05-14 11:16] VITALS: TEMP 97.7
[2022-05-14 11:18] VITALS: BP 171/78; O2SAT 99
== END 2022-05-14 11:09 | disposition home or self-care (01) ==
LOC: ER 08:22
DX: R10.84 Generalized abdominal pain (principal); Z85.6 Personal history of leukemia
CPT/HCPCS: 85025; 36415; 81003; 83690; 80053; 74177; 96375; 96374; 99284; Q9967; J7030; J2405